=== PATIENT | male | born 1975 | race Asian ===

== ENCOUNTER 2018-10-18 18:44 | Emergency (ER) | payer OTHER ==
[2018-10-18 19:06] VITALS: BP 122/79
--- NOTE | 2018-10-18 19:48 | UC ---
Skin Complaint HPI - HPI Summary HPI Summary: 43-year-old male comes in with a chief complaint of pain in the right buttock and drainage from the area. He's had pain for couple of days. Today he noticed drainage. There was a foul-smelling drainage initially. Now it's turned to blood. No fevers no chills feels well otherwise. - History of Current Complaint Chief Complaint: UCSkin Time Seen by Provider: 10/18/18 19:05 Stated Complaint: BOTTOM PAIN Pain Intensity: 6 - Allergy/Home Medications Allergies/Adverse Reactions: Allergies Allergy/AdvReac Type Severity Reaction Status Date / Time No Known Allergies Allergy Verified 10/18/18 19:03 PMH/Surg Hx/FS Hx/Imm Hx Previously Healthy: Yes - Surgical History Surgical History: None - Family History Known Family History: Positive: Non-Contributory - Social History Alcohol Use: None Substance Use Type: None Smoking Status (MU): Never Smoked Tobacco Review of Systems All Other Systems Reviewed And Are Negative: Yes Constitutional: Positive: Negative Skin: Positive: Other - SEE HPI Eyes: Positive: Negative ENT: Positive: Negative Respiratory: Positive: Negative Cardiovascular: Positive: Negative Gastrointestinal: Positive: Negative Motor: Positive: Negative Neurovascular: Positive: Negative Musculoskeletal: Positive: Negative Neurological: Positive: Negative Psychological: Positive: Negative Is Patient Immunocompromised?: No Physical Exam Triage Information Reviewed: Yes Appearance: Well-Appearing, No Pain Distress, Well-Nourished Vital Signs: Initial Vital Signs Temp 98.2 F 10/18/18 19:04 Pulse 90 10/18/18 19:04 Resp 18 10/18/18 19:04 BP 122/79 10/18/18 19:04 Pulse Ox 98 10/18/18 19:04 Vital Signs Reviewed: Yes Eye Exam: Normal Eyes: Positive: Conjunctiva Clear Neck: Positive: Supple Respiratory: Positive: No respiratory distress Musculoskeletal Exam: Normal Musculoskeletal: Positive: Strength Intact, ROM Intact Neurological Exam: Normal Neurological: Positive: Alert, Muscle Tone Normal Psychological Exam: Normal Psychological: Positive: Normal Response To Family, Age Appropriate Behavior Skin: Positive: Other - NEAR THE GLUTEAL CLEFT OF THE LEFT BUTTOCK, THERE IS A RAISED FIRM BUT NOT FLUCTUANT 2CM DRAINING BLOODY FLUID LESION MOST CONSISTENT WITH A DRAINING SKIN ABSCESS. NO FLUCTUANCE TO I&D Course/Dx - Diagnoses Provider Diagnosis: Skin abscess Discharge - Sign-Out/Discharge Documenting (check all that apply): Patient Departure All imaging exams completed and their final reports reviewed: No Studies - Discharge Plan Condition: Stable Disposition: HOME Prescriptions: Cephalexin CAP* [Keflex CAP*] 500 mg PO TID #30 cap Patient Education Materials: Abscess (ED) Referrals: [facility] [place] [facility] [Outside] Additional Instructions: FOLLOW UP WITH YOUR DOCTOR IF NOT COMPLETELY IMPROVED. GET RECHECKED SOONER IF YOUR CONDITION WORSENS; PAIN, FEVER, YOU FEEL ILL OR ANY QUESTIONS OR CONCERNS. - Billing Disposition and Condition Condition: STABLE Disposition: Home
--- NOTE | 2018-10-20 17:03 | UC ---
- Progress Note Progress Note: wound no growth - prelim on KEcflex await sensitivity and final no change [email or web address] 10/20/18 Course/Dx - Diagnoses Provider Diagnoses: Skin abscess Discharge - Sign-Out/Discharge Documenting (check all that apply): Post-Discharge Follow Up All imaging exams completed and their final reports reviewed: No Studies - Discharge Plan Condition: Stable Disposition: HOME Prescriptions: Cephalexin CAP* [Keflex CAP*] 500 mg PO TID #30 cap Patient Education Materials: Abscess (ED) Referrals: [facility] [place] [facility] [Outside] Additional Instructions: FOLLOW UP WITH YOUR DOCTOR IF NOT COMPLETELY IMPROVED. GET RECHECKED SOONER IF YOUR CONDITION WORSENS; PAIN, FEVER, YOU FEEL ILL OR ANY QUESTIONS OR CONCERNS. - Billing Disposition and Condition Condition: STABLE Disposition: Home
== END 2018-10-18 20:13 | disposition home or self-care (01) ==
LOC: UCEAST 18:44
DX: L02.31 Cutaneous abscess of buttock (principal)
CPT/HCPCS: 87070; 87205; 87640; 87641; 99212; G0463